=== PATIENT | male | born 1975 | race Caucasian/White ===

== ENCOUNTER → 2019-04-04 | Day surgery (SDC) | payer OTHER ==
[2019-04-02 10:46] LABS: BASOPHILS # (AUTO) 0.1 (0.0-0.1); EOSINOPHILS # (AUTO) 0.6 (0.0-0.4); EOSINOPHILS % 6.2 % (0.0-6.0); HEMATOCRIT 43.2 % (38.2-49.6); HEMOGLOBIN 14.3 g/dL (14.0-18.0); LYMPHOCYTES # (AUTO) 1.1 (1.0-3.2); LYMPHOCYTES % 12.3 % (18.0-39.1); MEAN CORPUSCULAR HEMOGLOBIN 26.5 pg (28-32); MEAN CORPUSCULAR HGB CONC 33.1 g/dL (31-35); MEAN CORPUSCULAR VOLUME 80.1 fL (81-99); MONOCYTES # (AUTO) 0.6 (0.2-0.8); MONOCYTES % 6.4 % (4.4-11.3); NEUTROPHILS # (AUTO) 6.6 (2.1-6.9); NEUTROPHILS % 73.8 % (38.7-80.0); PLATELET COUNT 236 x10e3/uL (140-360); RED BLOOD COUNT 5.39 x10e6/uL (4.3-5.7); RED CELL DISTRIBUTION WIDTH 14.7 % (11.7-14.4)
--- NOTE | 2019-04-02 11:00 | NUR ---
Clarified with Dr. Lewis when to stop warfarin. Dr. Lewis ordered for the patient to not stop coumadin and okay to take rest of his medications with a sip of water before his procedure.
[2019-04-02 11:04] LABS: ALANINE AMINOTRANSFERASE 27 IU/L (0-55); ALBUMIN 3.7 g/dL (3.5-5.0); ALBUMIN/GLOBULIN RATIO 1.1 (0.8-2.0); ALKALINE PHOSPHATASE 60 IU/L (40-150); ANION GAP 12.1 mmol/L (8-16); BLOOD UREA NITROGEN 14 mg/dL (7-26); BUN/CREATININE RATIO 15 (6-25); CALCIUM 9.6 mg/dL (8.4-10.2); CARBON DIOXIDE 24 mmol/L (22-29); CHLORIDE 106 mmol/L (98-107); CREATININE, SERUM 0.95 mg/dL (0.72-1.25); EST GLOMERULAR FILTRATION RATE > 60 ML/MIN (60-); GLUCOSE 98 mg/dL (74-118); POTASSIUM 4.1 mmol/L (3.5-5.1); SODIUM 138 mmol/L (136-145)
[2019-04-02 11:13] LABS: INR 1.69; PROTHROMBIN TIME 20.5 seconds (11.9-14.5)
[~2019-04-04] VITALS: Ht 182.9 cm; Wt 127.0 kg
[~2019-04-04] MED LIST: ENTRESTO PO; FENTANYL CITRATE/PF 100MCG/2 ML INJ ONE; FUROSEMIDE INJ 10 MG/ML 4 ML VIAL ONE; HEPARIN SOD (PORCINE) 1000 UNIT/ML 30ML ONE; HEPARIN SOD/SOD CHLORIDE 2,000 ML ONE; IOPAMIDOL 370 MG/ML 200 ML INFUS..BTL INJ ONE; LIDOCAINE HCL 2% LOCAL 20 ML VIAL ONE; METOPROLOL SUCC25 MG PO; MIDAZOLAM HCL 2 MG/2 ML VIAL ONE; NITROGLYCERIN/D5W 200 MCG/ML 250 ML ONE; POTASSIUM CHLO20 ME1 PO; SODIUM CHLORIDE 0.9% 1000ML 1,000 ML ONE; VERAPAMIL HCL 2.5 MG/ML 2 ML VIAL ONE; WARFARIN SODIUM3 MG PO; ZYRTEC10 MG PO
[2019-04-04 10:10] VITALS: BP 107/72
--- NOTE | 2019-04-04 10:10 | NUR ---
1010 bedside report received from GREGORIA Cooper.Identiferx2. Alert oriented and appropriate, PERRLA, respirations even and unlabored to room air. Pulses x4 extremities equal and strong. Pedal pulses PT/DP X4 and marked. Cap fill brisk < 3 sec. Skin warm and dry integrity appears D/I. IV 20g to left hand at 100cchr presents healthy w/o s/s of infiltration or complaint. Abdomen soft and supple. pt offered toileting, denies need to urinate or defecate. No personal affects with patient. Family at bedside Pt and family verbalizes understanding of POC. Dr Kirby at bedside. Ivp 20 lasix x1 Vois 500cc Tolerating po intake. Currently w/o complaint of pain or need.ds/rn
[2019-04-04 10:30] VITALS: BP 85/71
[2019-04-04 10:44] VITALS: BP 96/43
[2019-04-04 11:00] VITALS: BP 95/66
--- NOTE | 2019-04-04 11:05 | NUR ---
RADIAL Compression removal: Initial Cuff volume 15 cc 1105 -2cc Removed No hematoma/bleeding noted with normal neurovascular function ds/rn .
--- NOTE | 2019-04-04 11:10 | NUR ---
5cc Removed No hematoma/ bleeding noted with normal neurovascular function. Will continue to monitor
--- NOTE | 2019-04-04 11:27 | NUR ---
5 cc Removed No hematoma/ bleeding noted with normal neurovascular function. Will continut to monitor
[2019-04-04 11:30] VITALS: BP 91/62
--- NOTE | 2019-04-04 11:46 | NUR ---
5cc Removed No hematoma/ bleeding noted with normal neurovascular function. Air removal completed. Stasis achieved sterile 2x2,Tegaderm, Coban dressing No hematoma, bleeding noted with normal neurovascular function. Wrist splint in place. Pt instructed on POC.
[2019-04-04 12:15] VITALS: BP 97/66
--- NOTE | 2019-04-04 12:15 | NUR ---
1215 Pt meets DC criteria. Rt tr radial site and rt vascade site assessed for s/s of complication and presecence of hematoma. XXXXX warm, dry, no discolor, and pulses present. IV removed from left hand . Distal tip appears intact. VS WNL. Pt denies pain, sob, or need at this time. Family at XXXXX. Review of discharge paperwork and follow up instructions. verbalized understanding. Pt to wheelchair and transported to [facility]. Transferred to private vehicle under own strength w/o incident with DC paperwork in hand. - [email or web address] Addendum: 04/04/19 at 1435 by Ginger Aceves RN 1215 amend previous note. Pt meets DC criteria. Rt groin and rt tr band site assessed for s/s of complication and presence of hematoma. Skin warm, dry, no discolor, and pulses present. IV removed from left hand Distal tip appears intact. VS WNL. Pt denies pain, sob, or need at this time. Family at XXXXX. Review of discharge paperwork and follow up instructions. verbalized understanding. Pt to wheelchair and transported to [facility]. Transferred to private vehicle under own strength w/o incident with DC paperwork in hand. -roosevelt/vera
--- NOTE | 2019-04-04 17:52 | Operative Report ---
DATE OF PROCEDURE: 04/04/2019 SURGEON: Sari Lewis MD PROCEDURE TITLE: Cardiac catheterization. PROCEDURES PERFORMED: 1. Selective coronary angiography x2. 2. Moderate sedation, 90 minutes. SEDATION: 1. Midazolam 6 mg. 2. Fentanyl 125 mcg. INDICATIONS: Abnormal nuclear stress, acute systolic heart failure. INFORMED CONSENT: Informed consent was obtained and documented in the chart. PROCEDURE IN DETAIL: The patient was brought to the cardiac catheterization laboratory in a fasting state after written informed consent was obtained. Bilateral groins and right wrist were prepped and draped in the usual sterile fashion. A 1% lidocaine was infiltrated over the right radial artery to achieve local anesthesia. Micropuncture needle was used to access the right radial artery and 5-Montserratian long sheath was placed via modified Seldinger technique. A 5-Montserratian TIG was inserted and advanced into the ascending aorta under fluoroscopic guidance. Selective coronary angiography was performed. The TIG was then repositioned in attempt to cannulate the right coronary artery. The right coronary artery could not be successfully cannulated and the TIG was exchanged for a 3DRC, JR4, and Miranda. The right coronary artery was unable to be successfully cannulated despite use of the above catheters. The Miranda was therefore withdrawn and attention was turned to the right groin. A 1% lidocaine was used to achieve local anesthesia. Micropuncture needle was used to access the right common femoral artery. A 5-Montserratian sheath was inserted via modified Seldinger technique. The 5-Montserratian JR4 was inserted and advanced into the ascending aorta. The right coronary artery was cannulated under fluoroscopic guidance. Selective coronary angiography was performed. The JR4 was withdrawn and angiogram was performed of the right external iliac system. The 5-Montserratian sheath was removed and hemostasis was achieved using a Vascade closure device. The 5-Montserratian long sheath was subsequently discontinued and TR band was placed. There were no immediate procedure complications. FINDINGS: 1. Left main coronary artery bifurcates into the left anterior descending and circumflex arteries. The left anterior descending is a moderate-size vessel, which wraps around the apex. There was no angiographic evidence of disease. 2. The circumflex is a large caliber vessel, which gives rise to several OM branches as well as the PDA. There is no angiographic evidence of coronary artery disease. 3. The right coronary artery is a small caliber vessel without evidence of disease. IMPRESSION: Normal coronary arteries. RECOMMENDATIONS: The patient has been referred to Electrophysiology for [employer] defibrillator upgrade. Continue optimal medical therapy. Sari Lewis MD ABS/MODL /[id number]
== END | disposition home or self-care (01) ==
LOC: CATH LAB 06:35
PROVIDERS: ATTEND Internal Medicine
DX: R94.39 Abnormal result of other cardiovascular function study (principal); I50.23 Acute on chronic systolic (congestive) heart failure; Z79.01 Long term (current) use of anticoagulants; Z95.2 Presence of prosthetic heart valve; I49.3 Ventricular premature depolarization; I44.2 Atrioventricular block, complete; I73.9 Peripheral vascular disease, unspecified; Z01.812 Encounter for preprocedural laboratory examination; F17.210 Nicotine dependence, cigarettes, uncomplicated
CPT/HCPCS: 36415; 80053; 85025; 85610; 93454; C1760; C1769 ×2; C1887 ×2; J1644; J1940; J2001; J2250; J3010; J7030; Q9967; 99152; 99153

== ENCOUNTER → 2020-07-14 | Outpatient (CLI) | payer BC ==
[~2020-07-14] MED LIST changes: -FENTANYL CITRATE/PF 100MCG/2 ML INJ ONE; -FUROSEMIDE INJ 10 MG/ML 4 ML VIAL ONE; -HEPARIN SOD (PORCINE) 1000 UNIT/ML 30ML ONE; -HEPARIN SOD/SOD CHLORIDE 2,000 ML ONE; -IOPAMIDOL 370 MG/ML 200 ML INFUS..BTL INJ ONE; -LIDOCAINE HCL 2% LOCAL 20 ML VIAL ONE; -MIDAZOLAM HCL 2 MG/2 ML VIAL ONE; -NITROGLYCERIN/D5W 200 MCG/ML 250 ML ONE; -SODIUM CHLORIDE 0.9% 1000ML 1,000 ML ONE; -VERAPAMIL HCL 2.5 MG/ML 2 ML VIAL ONE
== END ==
LOC: CT 11:36
PROVIDERS: ATTEND Internal Medicine
DX: G45.9 Transient cerebral ischemic attack, unspecified (principal)
CPT/HCPCS: 70450

== ENCOUNTER → 2021-11-18 | Day surgery (SDC) | payer BC ==
[2021-11-16 11:21] LABS: BASOPHILS # (AUTO) 0.1 (0.0-0.1); BASOPHILS % 0.9 % (0.0-1.0); EOSINOPHILS # (AUTO) 0.2 (0.0-0.4); EOSINOPHILS % 2.3 % (0.0-6.0); HEMATOCRIT 44.5 % (38.2-49.6); HEMOGLOBIN 14.1 g/dL (14.0-18.0); LYMPHOCYTES # (AUTO) 1.3 (1.0-3.2); LYMPHOCYTES % 14.8 % (18.0-39.1); MEAN CORPUSCULAR HEMOGLOBIN 26.8 pg (28-32); MEAN CORPUSCULAR HGB CONC 31.7 g/dL (31-35); MEAN CORPUSCULAR VOLUME 84.4 fL (81-99); MONOCYTES # (AUTO) 0.5 (0.2-0.8); MONOCYTES % 5.7 % (4.4-11.3); NEUTROPHILS # (AUTO) 6.8 (2.1-6.9); NEUTROPHILS % 76.1 % (38.7-80.0); PLATELET COUNT 232 x10e3/uL (140-360); RED BLOOD COUNT 5.27 x10e6/uL (4.3-5.7); RED CELL DISTRIBUTION WIDTH 14.2 % (11.7-14.4)
[2021-11-16 11:24] LABS: CLARITY,URINE CLEAR (CLEAR); COLOR,URINE YELLOW (YELLOW); KETONES,URINE NEGATIVE (NEGATIVE); LEUKOCYTE ESTERASE ,URINE NEGATIVE (NEGATIVE); NITRITE,URINE NEGATIVE (NEGATIVE); PROTEIN,URINE DIPSTICK TRACE (NEGATIVE); URINE UROBILINOGEN 0.2 mg/dL (0.2 - 1)
[2021-11-16 11:43] LABS: ALBUMIN 3.8 g/dL (3.5-5.0); ANION GAP 15.8 mmol/L (8-16); CALCIUM 9.8 mg/dL (8.4-10.2); CREATININE, SERUM 0.94 mg/dL (0.72-1.25); POTASSIUM 4.8 mmol/L (3.5-5.1)
[~2021-11-18] MED LIST changes: +ALBUTEROL/IPRATROPIUM 3 ML NEB ONE; +ATORVASTATIN CA20 MG PO; +BUPIVACAINE HCL 0.25% 10ML MPF VIAL INJ ONE; +DESFLURANE 240 ML BTL INH ONE; +DEXAMETHASONE SOD PHOS INJ 4 MG/ML SDV ONE; +ENTRESTO 49 MG1 EACH; +FENTANYL CITRATE/PF 100MCG/2 ML INJ ONE; +HYDROMORPHONE 1MG/1ML INJ ONE; +INSULIN REGULAR, HUMAN 100 UNIT/1 ML ONE; +KETOROLAC TROMETHAMINE 30 MG/ML VIAL ONE; +LOVENOX80 MG/0.8 SC; +MIDAZOLAM HCL 2 MG/2 ML VIAL ONE; +ONDANSETRON HCL INJ 2MG/ML 2ML 2 MG/ML VIAL ONE; +POVIDONE IODINE 0.05% 0.05 % ML PO ONE; +PROPOFOL IV EMULSION 10 MG/ML 20 ML VIAL ONE; +ROCURONIUM BROMIDE 10 MG/ML 5ML VIAL IV ONE; +[UNRECOGNIZED DRUG - OTHER]
[2021-11-18 07:58] LABS: INR 0.93; PROTHROMBIN TIME 13.3 seconds (11.9-14.5)
[2021-11-18 07:59] LABS: PARTIAL THROMBOPLASTIN TIME 25.2 seconds (23.8-35.5)
[2021-11-18 11:43] VITALS: BP 111/73
== END | disposition home or self-care (01) ==
LOC: OR 06:49
PROVIDERS: ATTEND Surgery
DX: K80.10 Calculus of gallbladder with chronic cholecystitis without obstruction (principal); K76.0 Fatty (change of) liver, not elsewhere classified; K82.8 Other specified diseases of gallbladder; E11.9 Type 2 diabetes mellitus without complications; I11.0 Hypertensive heart disease with heart failure; I50.22 Chronic systolic (congestive) heart failure; I48.92 Unspecified atrial flutter; I49.3 Ventricular premature depolarization; I44.2 Atrioventricular block, complete; E66.01 Morbid (severe) obesity due to excess calories; F17.210 Nicotine dependence, cigarettes, uncomplicated; Z88.6 Allergy status to analgesic agent; Z01.810 Encounter for preprocedural cardiovascular examination; Z01.812 Encounter for preprocedural laboratory examination; Z01.818 Encounter for other preprocedural examination; Z20.822 Contact with and (suspected) exposure to COVID-19; Z79.01 Long term (current) use of anticoagulants; Z79.899 Other long term (current) drug therapy; Z68.37 Body mass index [BMI] 37.0-37.9, adult; Z95.0 Presence of cardiac pacemaker; Z95.2 Presence of prosthetic heart valve; Z86.73 Personal history of transient ischemic attack (TIA), and cerebral infarction without residual deficits
CPT/HCPCS: 36415 ×3; 47562; 71046; 80053; 81003; 82947; 82948; 85025; 85610; 85730; 88304; 93005; C1713; C1766; J0690; J1100; J1170; J1885; J2250; J2405; J2704; J3010; U0002; J1817